=== PATIENT | female | born 2000 | race Caucasian/White ===

== ENCOUNTER 2021-01-09 06:54 | Emergency (ER) | payer MEDICAID, OTHER ==
[~2021-01-09] VITALS: Ht 172.7 cm; Wt 90.0 kg
[2021-01-09 06:55] VITALS: BP 136/82
== END 2021-01-09 07:56 | disposition left against medical advice (07) ==
LOC: ER 06:54
DX: R55 Syncope and collapse (principal); R11.0 Nausea; N93.9 Abnormal uterine and vaginal bleeding, unspecified
CPT/HCPCS: 93005; 99283